=== PATIENT | female | born 1995 | race Caucasian/White ===

== ENCOUNTER → 2017-06-22 | Outpatient (CLI) | payer OTHER ==
--- NOTE | 2017-06-22 19:16 | Diagnostic Imaging Report ---
INDICATION: Palpable abnormality retroareolar. Sonographic surveillance over the region of clinical complaint revealed no appreciable fluid collection or discrete solid or cystic breast mass. No evidence for ductal ectasia. No fluid collection. Some heterogeneous dense fibroglandular elements in the retroareolar region which challenge sonographic sensitivity. No benign or malignant explanation for the abnormal clinical exam can be confirmed at this study. Therefore either close clinical followup of any palpable lesion is needed versus correlative diagnostic mammography. IMPRESSION: No sonographic explanation to the presenting complaint. If the palpable abnormality persist on close clinical followup, would suggest proceeding with diagnostic mammography as further evaluation. Dictated by: Dictated on workstation # [id number]
== END ==
LOC: RAD 13:14
DX: N63.20 Unspecified lump in the left breast, unspecified quadrant (principal)
CPT/HCPCS: 76641